=== PATIENT | male | born 1995 | race Caucasian/White ===

== ENCOUNTER 2017-07-25 21:31 | Emergency (ER) | payer OTHER ==
[2017-07-26] MEDS: IBUPROFEN 600 MG TAB PO (01:01)
[2017-07-26] MEDS: ACETAMINOPH W/CODEINE #3 TAB UD PO (01:02)
== END 2017-07-26 01:36 | disposition home or self-care (01) ==
LOC: M ED 21:31
DX: S20.229A Contusion of unspecified back wall of thorax, initial encounter (principal); W00.9XXA Unspecified fall due to ice and snow, initial encounter; Y92.89 Other specified places as the place of occurrence of the external cause; Z86.2 Personal history of diseases of the blood and blood-forming organs and certain disorders involving the immune mechanism; Z87.39 Personal history of other diseases of the musculoskeletal system and connective tissue
CPT/HCPCS: 72072

== ENCOUNTER 2017-11-17 21:20 | Emergency (ER) | payer OTHER ==
[2017-11-17] MEDS: diazePAM 5 MG TAB PO (23:05)
[2017-11-17] MEDS: NORCO, ANEXSIA 5/325MG TABLET (HYDROcodone/ACETAMINOPHEN) PO (23:06)
[2017-11-18] MEDS: IBUPROFEN 600 MG TAB PO (00:13)
[2017-11-18] MEDS: diazePAM 5 MG TAB PO (00:14)
[2017-11-18] MEDS: NORCO 5/325MG TABLET (BULK FOR ED) PO (00:14)
== END 2017-11-18 00:24 | disposition home or self-care (01) ==
LOC: M ED 11-18 00:24
DX: S39.012A Strain of muscle, fascia and tendon of lower back, initial encounter (principal); X50.0XXA Overexertion from strenuous movement or load, initial encounter; Y92.9 Unspecified place or not applicable; Y93.9 Activity, unspecified; Y99.9 Unspecified external cause status; M41.9 Scoliosis, unspecified; Z87.442 Personal history of urinary calculi; Z87.81 Personal history of (healed) traumatic fracture; Z79.899 Other long term (current) drug therapy
CPT/HCPCS: 99283